=== PATIENT | female | born 1975 | race Caucasian/White ===

== ENCOUNTER 2018-02-12 19:51 | Emergency (ER) | payer OTHER, SELFPAY ==
[2018-02-12 19:52] VITALS: BP 152/84; PULSE 57; RESP 14; TEMP 36.3; O2SAT 100; BMI 37.2
--- NOTE | 2018-02-12 19:55 | RAD_ITS ---
STUDY: X-RAY - RIGHT HAND, ATTENTION THUMB REASON FOR EXAM: Female, 42 years old. Pain, laceration. TECHNIQUE: 3 view(s) of the finger were obtained. COMPARISON: None. FINDINGS: Normal metacarpal head. Normal metacarpophalangeal joint. Normal proximal phalanx. Normal middle phalanx. Normal distal phalanx. Normal proximal interphalangeal joint. Normal distal interphalangeal joint. Gas is identified in the soft tissues and nail bed of the distal phalanx consistent with history of laceration. There is no evidence of radiopaque foreign body. RAD/Finger(s) Min 2 Views IMPRESSION: 1. No osseous abnormality. 2. Soft tissue gas consistent with history of laceration. Electronically Signed: Chayo Wilde MD at 20:23 EDT Tel , Service support ,
[2018-02-12 21:05] VITALS: BP 135/77; PULSE 73; RESP 16; O2SAT 97
[2018-02-12] MEDS: Diphth,Pertuss(Acell),Tet Vac 0.5 ML Vial IM (21:17)
[2018-02-12] MEDS: HYDROcodone Bitartrate/Apap 5/325 Tablet PO ×2 (21:18→21:59)
--- NOTE | 2018-02-12 21:37 | ED.DCSUM_ITS ---
- ER Visit Summary Date of Service: 02/12/18 Chief Complaint: Right thumb injury History of Present Illness: The patient is a 42 F who caught her right thumb caught in a log splitter. She was wearing gloves at the time. She is right- hand dominant. She is unsure of her last tetanus update. Physical Examination: Vital signs unremarkable. Patient sitting upright in bed no acute distress. Right upper extremity examination reveals evidence of a subungual hematoma to the right thumb with dried blood at the base of the nail. She has good cap refill with diffuse tenderness throughout the right thumb. Test Results: Right thumb x-rays are obtained that show no osseous abnormality. There is evidence of soft tissue gas consistent with history of laceration. Emergency Department Course and Treatment: Patient was given Volcano along with tetanus update. Digital block was performed with 3 cc of 1% lidocaine. The nail base is cleansed. There are abrasions present. The nail itself is firmly in position. With pressure on the nail with subungual blood evacuates under the lateral surfaces of the nail. Wound is cleansed and dressing is applied. Patient be given a prescription for analgesics. Treatment Plan: [] Disposition: Discharge Impression: Crush injury right thumb with subungual hematoma This note was generated with [employer] dictation software. It may contain incorrect words, spelling, and punctuation that were not noted in review of the chart prior to signing ED Disposition - Plan for ED Patient: Disposition: Home or Assisted Living Chief Complaint: Upper Extremity Injury Instructions: ED Crush Injury Finger No Fx, ED Hematoma Subungual Prescriptions: Hydrocodone Bitart/Apap 5-325 [Volcano 5MG-325MG] 1 tablet PO Q4H PRN PRN 2 Days #10 tablet PRN Reason: Pain Referrals: Zeus Coombs MD [Primary Care Provider] - 1-2 Weeks
[2018-02-12 21:50] VITALS: BP 126/79; PULSE 71; RESP 16; O2SAT 97
== END 2018-02-12 22:04 | disposition home or self-care (01) ==
PROVIDERS: Emergency Provider Emergency Medicine; Family Provider Family Medicine; PCP Family Medicine
DX: S67.01XA Crushing injury of right thumb, initial encounter (principal); W27.8XXA Contact with other nonpowered hand tool, initial encounter; Y93.9 Activity, unspecified; Y92.89 Other specified places as the place of occurrence of the external cause; Y99.9 Unspecified external cause status; E11.9 Type 2 diabetes mellitus without complications; I10 Essential (primary) hypertension; E78.00 Pure hypercholesterolemia, unspecified
CPT/HCPCS: 11750; 73140; 90715; 99283

== ENCOUNTER → 2018-03-04 14:39 | Outpatient (CLI) | payer OTHER, SELFPAY ==
[2018-03-04 15:16] LABS: Hematocrit 42.7 % (37-47); Hemoglobin 13.6 g/dl (12.0-15.0); Mean Corp Hgb Conc 31.9 g/gl (32-36); Mean Corpuscular Hgb 30.5 pg (27.0-32.0); Mean Corpuscular Volume 95.7 fL (81-99); Mean Platelet Vol. 9.6 fl (6.2-12.0); Platelet Count 325 K/mm3 (150-450); RBC Distribution Width CV 12.2 % (11.6-14.6); Red Blood Count 4.46 M/mm3 (4.2-5.4); White Blood Count 7.2 K/mm3 (4.4-11.0)
[2018-03-04 15:22] LABS: Scan Indicated on CBC? Y/N NO
[2018-03-04 15:53] LABS: Anion Gap 7 (5-15); BUN 15 mg/dL (7-18); BUN/Creat Ratio 23.5 RATIO (10-20); Calcium,Total 8.7 mg/dL (8.5-10.1); Chloride 104 mmol/L (98-107); Creatinine, Serum 0.64 mg/dL (0.55-1.02); EST Glomerular Filtration Rate 108 mL/min (>60); Est Glom Filt Rate - Afr Amer 130 mL/min (>60); Glucose 118 mg/dL (74-106); Magnesium 1.8 mg/dL (1.6-2.6); Potassium 4.3 mmol/L (3.5-5.1); Sodium Level 139 mmol/L (136-145)
[2018-03-04 15:55] LABS: Valproic Acid (Depakene) Level 66 ug/mL (50-100)
== END ==
PROVIDERS: Family Provider Family Medicine; PCP Family Medicine; Referring Provider Nurse Practitioner Acute Care; Visit Provider Nurse Practitioner Acute Care
DX: G43.909 Migraine, unspecified, not intractable, without status migrainosus (principal)
CPT/HCPCS: 36415; 80048; 80164; 83735; 84100; 85027